=== PATIENT | male | born 1940 | race Caucasian/White ===

== ENCOUNTER 2019-02-28 04:39 | Emergency (ER) | payer MEDICARE, OTHER ==
[~2019-02-28] VITALS: Ht 177.8 cm; Wt 81.0 kg
[2019-02-28] MEDS ORDERED: MORPHINE SULFATE 4 MG/ML, 1ML ONE ×2 (05:03→06:39)
[2019-02-28] MEDS ORDERED: ONDANSETRON 2MG/ML, 2ML ONE (05:03)
[2019-02-28] MEDS ORDERED: CARB1TAB46 PO (05:09)
[2019-02-28] MEDS ORDERED: ROPI0.254 PO (05:09)
[2019-02-28] MEDS: MORPHINE SULFATE 4 MG/ML, 1ML IVPush PRN ×2 (05:10→07:00)
--- NOTE | 2019-02-28 05:20 | NUR ---
Patient brought into room by EMS. Transferred from [facility] to bed without event. Patient has a difficult time hearing. Received report from EMS that they were called with the patients med alert bracelet. Patient was walking his dog and tripped and fell. Received report that the patient is not on blood thinners. Has a laceration on forehead, wrapped. Patient reports neck and right leg pain. Task RN to bedside, line initiated and blood drawn. RN completed assessment, tenderness noted on forehead (laceration present, wrapped by EMT) neck tenderness localized over paraspinal muscle, no significant tenderness over vertebral processes. Patient also complaining about left leg pain (difficult to assess, as patient is primarily moaning; few words, no complete sentences) Moaning increases with palpatin of right thigh, no bruising, blood, deformation noted. No shortening of the leg noted. Physicians to bedside completing assessment. Received orders for analgesic and antinausea medication. Awaiting computed tomagraphy scans.
[2019-02-28] MEDS ORDERED: SODIUM CHLORIDE FLUSH 10ML SYR IVF ONE (05:30)
[2019-02-28] MEDS ORDERED: ONDANSETRON 2MG/ML, 2ML IVPush ONE (05:30)
[2019-02-28 05:34] LABS: BASOPHILS # (AUTO) 0.04 x10^3/uL (0-0.1); BASOPHILS % (AUTO) 1 % (0-1); EOSINOPHILS % (AUTO) 1 % (1-7); LYMPHOCYTES # (AUTO) 1.14 x10^3/uL (1-3.4); LYMPHOCYTES % (AUTO) 15 % (22-44); MD NO; MEAN CORPUSCULAR HEMOGLOBIN 32.1 pg (27.5-34.5); MEAN CORPUSCULAR HGB CONC 33.4 g/dL (33.2-36.2); MEAN CORPUSCULAR VOLUME 96.2 fL (81-97); MEAN PLATELET VOLUME 8.1 fL (7.4-10.4); MONOCYTES % (AUTO) 9 % (2-9); NEUTROPHILS # (AUTO) 5.46 x10^3/uL (1.8-6.8); NEUTROPHILS % (AUTO) 73 % (42-75); PLATELET COUNT 192 x10^3/uL (130-400); RED CELL DISTRIBUTION WIDTH 15.7 % (9.4-14.8)
[2019-02-28 05:43] LABS: INTERNATIONAL NORMALIZED RATIO 1.1 (0.93-1.1); PROTHROMBIN TIME 11.7 Seconds (9.6-11.5)
[2019-02-28 05:46] LABS: ALBUMIN 3.4 g/dL (3.4-5.0); ANION GAP 13 mmol/L (5-15); CALCIUM 8.3 mg/dL (8.5-10.1); CHLORIDE 107 mmol/L (98-107); CREATININE 2.27 mg/dL (0.7-1.3)
[2019-02-28 05:48] LABS: ALKALINE PHOSPHATASE 106 U/L (45-117); BILIRUBIN,TOTAL 0.7 mg/dL (0.2-1.0); TOTAL PROTEIN 6.4 g/dL (6.4-8.2)
[2019-02-28 05:50] LABS: ALANINE AMINOTRANSFERASE < 6 U/L (12-78)
[2019-02-28] MEDS ORDERED: LIDOCAINE-MPF 1%, 5ML ONE (06:28)
[2019-02-28] MEDS ORDERED: LIDOCAINE-MPF 1%, 5ML INFIL ONE (06:30)
--- NOTE | 2019-02-28 07:01 | NUR ---
Received updated from provider that patient has a c4 process fracture. Administered additional analgesic medication. Midlevel provider at bedside for care of forehead laceration.
--- NOTE | 2019-02-28 07:02 | NUR ---
Received bedside report from LEIGHTON Carlin. All questions answered. Assuming care of pt at this time. EDNP at bedside suturing pt. NADN. No needs expressed at this time.
--- NOTE | 2019-02-28 07:23 | NUR ---
Pt provided phone number [phone] for Sruthi (spelling?) Alana, pt's daughter, for contact to continuous pickling line pickler pt's dog. Called phone number with no answer and no voicemail provided. Pt's contact in EMR ( Zoe Warner) phone number disconnected. Pt states he lives alone. ED Director aware.
[2019-02-28] MEDS ORDERED: DIPH,PERTUSS(ACELL),TET VAC/PF 0.5 ML IM-VACC ONE ×2 (08:00→08:59)
--- NOTE | 2019-02-28 08:46 | NUR ---
AMBULATED PATIENT WITH FRONT WHEEL WALKER. PATIENT AMBULATED WELL WITH SHUFFLING GAIT AND WAS ABLE TO RAISE HIMSELF FROM A SEATED TO STANDING POSITION WITH THE WALKER. NOTIFIED DR. JOHNSON.
[2019-02-28 11:19] VITALS: BP 127/96
--- NOTE | 2019-02-28 11:20 | NUR ---
Patient given discharge instructions and they have confirmed that they understand the instructions. Patient ambulatory with front-wheel walker and with daughter's assisstance. Patient discharged safely in daughter's care. Patient complained of missing wallet. Searched patient's room but unable to find a wallet. Called dispatch at [facility] who has not had a wallet turned in. Notified patient.
== END 2019-02-28 11:23 | disposition home or self-care (01) ==
LOC: ED 10:10
DX: S12.390A Other displaced fracture of fourth cervical vertebra, initial encounter for closed fracture (principal); S01.81XA Laceration without foreign body of other part of head, initial encounter; M25.551 Pain in right hip; M25.561 Pain in right knee; W01.0XXA Fall on same level from slipping, tripping and stumbling without subsequent striking against object, initial encounter; Y93.K1 Activity, walking an animal; Y92.89 Other specified places as the place of occurrence of the external cause; Y99.8 Other external cause status
CPT/HCPCS: 12013; 36415; 70450; 70486; 72125; 73552; 73590; 80053; 85025; 85610; 85730; 90471; 90715; 96374; 96375; 96376; 99284; J2270; J2405